=== PATIENT | male | born 1990 | race Caucasian/White ===

== ENCOUNTER 2019-01-25 09:43 | Emergency (ER) | payer SELFPAY ==
[~2019-01-25] VITALS: Ht 185.4 cm; Wt 99.8 kg
[2019-01-25] MEDS ORDERED: CLEOCIN HCL300 MG PO (10:14)
== END 2019-01-25 11:10 | disposition home or self-care (01) ==
LOC: ED 09:43
DX: K04.7 Periapical abscess without sinus (principal)
CPT/HCPCS: 96365; 96375; 99282-25; J2405

== ENCOUNTER 2021-04-15 07:20 | Emergency (ER) | payer OTHER ==
[~2021-04-15] VITALS: Ht 185.4 cm; Wt 99.8 kg
[~2021-04-15 07:20] MED LIST: CLEOCIN HCL300 MG PO
--- OUTSIDE RECORDS SUMMARY | 2021-04-15 07:28 | XMS ---
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 Liza has no Care Guidelines for this patient. Vicky VISIT COUNT (12 MO.) 1 YENNI Crum TOTAL 1 NOTE: Visits indicate total known visits. ED/C VISIT TRACKING (12 MO.) 04/15/2021 07:21 YENNI Mendoza OR TYPE: Emergency COMPLAINT: - R WRIST INJURY INPATIENT VISIT TRACKING (12 MO.) No inpatient visits to display in this time frame [email or web address]
== END 2021-04-15 07:59 | disposition home or self-care (01) ==
LOC: ED 07:20
DX: S63.501A Unspecified sprain of right wrist, initial encounter (principal); F17.200 Nicotine dependence, unspecified, uncomplicated; Z79.899 Other long term (current) drug therapy; X50.0XXA Overexertion from strenuous movement or load, initial encounter; Y99.0 Civilian activity done for income or pay
CPT/HCPCS: 99283

== ENCOUNTER 2024-03-05 07:24 | Emergency (ER) | payer BC ==
[~2024-03-05] VITALS: Ht 185.4 cm; Wt 88.0 kg
[2024-03-05] MEDS ORDERED: TRAMADOL HCL50 MG PO (07:59)
[2024-03-05] MEDS ORDERED: AMOXICILLIN500 MG PO (07:59)
[2024-03-05 08:03] VITALS: BP 145/92
== END 2024-03-05 08:03 | disposition home or self-care (01) ==
LOC: ED 07:24
DX: K02.9 Dental caries, unspecified (principal); F17.200 Nicotine dependence, unspecified, uncomplicated; Z88.0 Allergy status to penicillin
CPT/HCPCS: 99282